=== PATIENT | female | born 1980 | race Caucasian/White ===

== ENCOUNTER 2023-09-29 17:05 | Emergency (ER) | payer MEDICARE, OTHER ==
[~2023-09-29] VITALS: Ht 167.6 cm; Wt 59.0 kg
[2023-09-29 17:12] VITALS: TEMP 99
[2023-09-29 22:11] VITALS: BP 101/62; O2SAT 98
== END 2023-09-29 22:12 ==
LOC: ER 17:09
DX: K59.00 Constipation, unspecified (principal); R22.2 Localized swelling, mass and lump, trunk
CPT/HCPCS: 72131-TC

== ENCOUNTER 2023-11-30 20:37 | Inpatient (IN) | payer MEDICARE, OTHER ==
[~2023-11-30] VITALS: Ht 167.6 cm; Wt 61.2 kg
[2023-11-30 21:29] LABS: BASOPHILS # (AUTO) 0.1 K/uL (0.0-0.2); BASOPHILS % (AUTO) 1.3 % (0.0-2.0); EOSINOPHILS # (AUTO) 0.1 K/uL (0.0-0.7); EOSINOPHILS % (AUTO) 1.4 % (0.0-6.0); HEMATOCRIT 38 % (33-45); HEMOGLOBIN 12.2 g/dL (11.5-14.8); LYMPHOCYTES % (AUTO) 44.2 % (20.0-44.0); MEAN CORPUSCULAR HEMOGLOBIN 24 PG (26.0-33.0); MEAN CORPUSCULAR HGB CONC 32 g/dl (31.0-36.0); MEAN CORPUSCULAR VOLUME 75 fL (82-100); MONOCYTES # (AUTO) 0.4 K/uL (0.1-1.30); MONOCYTES % (AUTO) 5.6 % (2.0-12.0); NEUTROPHILS # (AUTO) 3.2 K/uL (1.8-8.9); NEUTROPHILS % (AUTO) 47.5 % (43.0-81.0); PLATELET COUNT (AUTO) 235 K/uL (150-450); RED BLOOD CELL COUNT(AUTO) 5.07 MIL/uL (4.0-5.2); WHITE BLOOD COUNT (AUTO) 6.8 K/uL (4.3-11.0)
[2023-11-30] MEDS ORDERED: CEFEPIME 1 GM VIAL ONE (21:31)
[2023-11-30] MEDS ORDERED: VANCOMYCIN 1 GM /D5W 250 ML PB IV ONE (21:31)
[2023-11-30 21:41] LABS: CALCIUM, SERUM 8.6 mg/dL (8.5-10.1); CREATININE 0.4 mg/dL (0.6-1.3); POTASSIUM 3.5 mmol/L (3.5-5.1)
[2023-11-30 21:46] LABS: ALBUMIN 3.2 g/dL (3.4-5.0); BILIRUBIN,DIRECT 0.1 mg/dL (0.0-0.2); BILIRUBIN,TOTAL 0.4 mg/dL (0.2-1.0); TOTAL PROTEIN, SERUM 6.9 g/dL (6.4-8.2)
[2023-11-30 21:49] LABS: LACTIC ACID 0.9 mmol/L (0.4-2.0)
[2023-11-30] MEDS: CEFEPIME 1 GM in IV D5W 50 ML IV ONE (22:15)
[2023-11-30] MEDS ORDERED: MAGNESIUM HYDROXIDE 30 ML UDC PO PRN (22:30)
[2023-11-30] MEDS ORDERED: MAG HYDROX/AL HYDROX/SIMETH 30 ML UDC PO PRN (22:30)
[2023-11-30] MEDS ORDERED: ONDANSETRON HCL/PF 4 MG/2 ML VIAL IVP PRN (22:30)
[2023-11-30] MEDS ORDERED: ACETAMINOPHEN 325 MG TABLET PO PRN (22:30)
[2023-11-30 22:32] LABS: APPEARANCE,URINE CLEAR (CLEAR); BILIRUBIN,URINE NEGATIVE (NEGATIVE); BLOOD, URINE NEGATIVE Ery/uL (NEGATIVE); COLOR,URINE YELLOW (YELLOW); KETONES,URINE 3+ mg/dL (NEGATIVE); LEUKOCYTE ESTERASE ,URINE NEGATIVE (NEGATIVE); NITRITE, URINE NEGATIVE (NEGATIVE); PROTEIN,URINE NEGATIVE (NEGATIVE); UGLUCOSE 3+ mg/dL (NEGATIVE); UROBILINOGEN,URINE 0.2 EU/dL (0.2)
[2023-11-30 22:34] LABS: ADD URINE CULTURE NO; BACTERIA,URINE Rare /HPF (None Seen); SQUAMOUS EPITHELIAL CELL,UR Rare /HPF (None Seen); WBC,URINE 0-2 /HPF (0-3)
[2023-11-30 22:34] LABS: INR 0.97 (0.91-1.10); PARTIAL THROMBOPLASTIN TIME 29.2 SEC (24.3-34.3); PROTHROMBIN TIME 10.3 SECS (9.2-11.1)
[2023-11-30] MEDS: VANCOMYCIN 1 GM in IV D5W 250 ML IV ONE (23:00)
[2023-11-30] MEDS ORDERED: MIDO10TA PO (23:11)
[2023-11-30] MEDS ORDERED: GABA600T12 PO (23:11)
[2023-11-30] MEDS ORDERED: CYAN500T64 PO (23:11)
[2023-11-30] MEDS ORDERED: OXYB10TA30 PO (23:11)
[2023-11-30] MEDS ORDERED: ERGO500093 PO (23:11)
[2023-11-30] MEDS ORDERED: IBUP-76 PO (23:11)
[2023-11-30] MEDS ORDERED: HYDR-4182 TP (23:11)
[2023-11-30] MEDS ORDERED: MELA5TAB25 PO (23:11)
[2023-11-30] MEDS ORDERED: ESCI20TA PO (23:11)
[2023-11-30] MEDS ORDERED: LORA10CA PO (23:11)
[2023-11-30] MEDS ORDERED: BACL10TA PO (23:11)
[2023-11-30] MEDS ORDERED: ACET-907 PO (23:11)
[2023-11-30] MEDS ORDERED: POLY15DR31 EACHEYE (23:11)
[2023-11-30] MEDS ORDERED: FERR325T27 PO (23:11)
[2023-11-30 23:26] VITALS: BP 99/69; TEMP 97.7; O2SAT 99
[2023-12-01] MEDS ORDERED: Medication Not On Formulary EA (Melatonin 1 TAB) PO PRN
[2023-12-01] MEDS ORDERED: ACETAMINOPHEN W/ CODEINE#3 1 EA TABLET PO PRN
[2023-12-01] MEDS: IV NS 0.9% 1,000 ML IV SCH (00:18)
[2023-12-01] MEDS: BACLOFEN (10 MG) 10 MG TABLET PO SCH (00:29)
[2023-12-01] MEDS: MIDODRINE HCL (5MG) 5 MG TABLET PO SCH (01:30)
[2023-12-01] MEDS ORDERED: POLYVINYL ALCOHOL 15 ML BOTTLE EACHEYE PRN (01:30)
[2023-12-01 07:12] LABS: BASOPHILS # (AUTO) 0.1 K/uL (0.0-0.2); BASOPHILS % (AUTO) 0.7 % (0.0-2.0); EOSINOPHILS # (AUTO) 0.1 K/uL (0.0-0.7); EOSINOPHILS % (AUTO) 0.8 % (0.0-6.0); HEMATOCRIT 35 % (33-45); HEMOGLOBIN 11.3 g/dL (11.5-14.8); LYMPHOCYTES % (AUTO) 24.4 % (20.0-44.0); MEAN CORPUSCULAR HEMOGLOBIN 25 PG (26.0-33.0); MEAN CORPUSCULAR HGB CONC 32 g/dl (31.0-36.0); MEAN CORPUSCULAR VOLUME 76 fL (82-100); MONOCYTES # (AUTO) 0.6 K/uL (0.1-1.30); MONOCYTES % (AUTO) 6.9 % (2.0-12.0); NEUTROPHILS # (AUTO) 5.4 K/uL (1.8-8.9); NEUTROPHILS % (AUTO) 67.2 % (43.0-81.0); PLATELET COUNT (AUTO) 217 K/uL (150-450); RED BLOOD CELL COUNT(AUTO) 4.58 MIL/uL (4.0-5.2); WHITE BLOOD COUNT (AUTO) 8.1 K/uL (4.3-11.0)
[2023-12-01 07:30] VITALS: BP 129/80; TEMP 98.4; O2SAT 99
[2023-12-01 08:02] LABS: CALCIUM, SERUM 8.6 mg/dL (8.5-10.1); CREATININE 0.4 mg/dL (0.6-1.3); MAGNESIUM 2.2 mg/dL (1.8-2.4); PHOSPHORUS 3.5 mg/dL (2.5-4.9)
[2023-12-01] MEDS ORDERED: NA P133E RC (08:36)
[2023-12-01] MEDS ORDERED: [UNRECOGNIZED DRUG - OTHER] TP (08:36)
[2023-12-01] MEDS ORDERED: MENT1.1L PO (08:36)
[2023-12-01] MEDS ORDERED: POLY119P3 PO (08:36)
[2023-12-01] MEDS ORDERED: DOCU100T2 PO (08:36)
[2023-12-01] MEDS ORDERED: LOPE2CAP40 PO (08:36)
[2023-12-01] MEDS ORDERED: CHLO473M2 MM (08:36)
[2023-12-01] MEDS ORDERED: BISA10SU11 RC (08:36)
[2023-12-01] MEDS: CYANOCOBALAMIN 500 MCG TABLET PO SCH (09:00)
[2023-12-01] MEDS ORDERED: HYDROCORTISONE CR 30 GM TUBE RC SCH ×2 (09:00)
[2023-12-01] MEDS: FERROUS SULFATE (325 MG) 325 MG/TAB TABLET PO SCH (09:07)
[2023-12-01] MEDS: VANCOMYCIN 1 GM in IV D5W 250ml IV SCH (09:07)
[2023-12-01] MEDS: ESCITALOPRAM OXALATE (10 MG) 10 MG TABLET PO SCH (09:08)
[2023-12-01] MEDS: OXYBUTYNIN CHLORIDE 5 MG TABLET PO SCH (09:08)
[2023-12-01] MEDS: LORATADINE 10 MG TABLET PO SCH (09:08)
[2023-12-01] MEDS: GABAPENTIN 300 MG CAPSULE PO SCH (09:21)
[2023-12-01] MEDS: POTASSIUM CHLORIDE 20 MEQ TAB.PRT.SR PO SCH (10:30)
[2023-12-01] MEDS: Z GUARD REMEDY 4 OZ OINT TP SCH (11:31)
[2023-12-01] MEDS: CEFEPIME 2 GM in IV D5W 100 ML IV SCH (11:57)
[2023-12-01] MEDS: IV NS 0.9% 1,000 ML IV PRN (12:51)
[2023-12-01 16:23] VITALS: BP 98/66; TEMP 98.2; O2SAT 98
[2023-12-01 20:00] VITALS: BP 92/60; TEMP 99; O2SAT 96; O2SAT 98
[2023-12-01] MEDS ORDERED: CEFEPIME 1 GM in IV D5W 50 ML IV SCH (21:00)
[2023-12-02] MEDS: Z GUARD REMEDY 4 OZ OINT TP PRN (06:07)
[2023-12-02 06:32] LABS: BASOPHILS # (AUTO) 0.1 K/uL (0.0-0.2); EOSINOPHILS # (AUTO) 0.1 K/uL (0.0-0.7); EOSINOPHILS % (AUTO) 1.7 % (0.0-6.0); HEMATOCRIT 36 % (33-45); HEMOGLOBIN 11.7 g/dL (11.5-14.8); LYMPHOCYTES # (AUTO) 2.8 K/uL (0.8-4.8); LYMPHOCYTES % (AUTO) 39.9 % (20.0-44.0); MEAN CORPUSCULAR HEMOGLOBIN 25 PG (26.0-33.0); MEAN CORPUSCULAR HGB CONC 33 g/dl (31.0-36.0); MEAN CORPUSCULAR VOLUME 77 fL (82-100); MONOCYTES # (AUTO) 0.5 K/uL (0.1-1.30); MONOCYTES % (AUTO) 7.3 % (2.0-12.0); NEUTROPHILS # (AUTO) 3.5 K/uL (1.8-8.9); NEUTROPHILS % (AUTO) 50.1 % (43.0-81.0); PLATELET COUNT (AUTO) 238 K/uL (150-450); RED BLOOD CELL COUNT(AUTO) 4.62 MIL/uL (4.0-5.2); RED CELL DISTRIBUTION WIDTH 22.3 % (11.5-15.0); WHITE BLOOD COUNT (AUTO) 7.1 K/uL (4.3-11.0)
[2023-12-02 07:01] LABS: CALCIUM, SERUM 7.6 mg/dL (8.5-10.1); CREATININE 0.3 mg/dL (0.6-1.3); MAGNESIUM 2.2 mg/dL (1.8-2.4); PHOSPHORUS 3.2 mg/dL (2.5-4.9); POTASSIUM 3.9 mmol/L (3.5-5.1)
[2023-12-02 07:30] VITALS: BP 112/68; TEMP 97.6; O2SAT 98
[2023-12-02] MEDS: LIDOCAINE 5% (PATCH) 1 EA PATCH TP SCH (09:00)
[2023-12-02] MEDS: VANCOMYCIN 750 MG in IV D5W 250 ML IV SCH (14:24)
[2023-12-02 16:00] VITALS: BP 98/55; TEMP 98.4; O2SAT 100
[2023-12-02 20:00] VITALS: BP_SYST 96; BP_DIAS 55; BP_DIAS 65; TEMP 98.2; O2SAT 99
[2023-12-03 04:00] VITALS: BP 89/58; TEMP 98.2; O2SAT 98
[2023-12-03 08:00] VITALS: BP 89/56; TEMP 98.4; O2SAT 100
[2023-12-03] MEDS: ENSURE ENLIVE 237 ML LIQUID (VANILLA) PO SCH (09:00)
[2023-12-03 16:59] VITALS: BP 76/50; TEMP 99.1; O2SAT 100
[2023-12-03 20:00] VITALS: BP 92/55; TEMP 99.3; O2SAT 97
[2023-12-04 06:32] LABS: CALCIUM, SERUM 7.4 mg/dL (8.5-10.1); CREATININE 0.3 mg/dL (0.6-1.3); POTASSIUM 3.6 mmol/L (3.5-5.1)
[2023-12-04 07:00] VITALS: BP 115/68; TEMP 98.4; O2SAT 98
[2023-12-04] MEDS ORDERED: DOXY-226 PO (13:01)
[2023-12-04 16:00] VITALS: BP 97/62; TEMP 98.4; O2SAT 97
[2023-12-04 16:21] VITALS: BP 97/62
== END 2023-12-04 18:00 | DRG 539 ==
LOC: ER 20:43 → MED 23:02
PROVIDERS: ATTEND Nurse Practitioner Acute Care
DX: M46.28 Osteomyelitis of vertebra, sacral and sacrococcygeal region (principal); G82.50 Quadriplegia, unspecified; E44.1 Mild protein-calorie malnutrition; N31.9 Neuromuscular dysfunction of bladder, unspecified; V89.2XXS Person injured in unspecified motor-vehicle accident, traffic, sequela; E88.09 Other disorders of plasma-protein metabolism, not elsewhere classified; Z68.21 Body mass index [BMI] 21.0-21.9, adult; D50.9 Iron deficiency anemia, unspecified; E83.51 Hypocalcemia; E87.6 Hypokalemia; F32.A Depression, unspecified; Z79.899 Other long term (current) drug therapy
CPT/HCPCS: 36415; 71045-TC; 80048-TC; 80076-TC; 80202-TC; 81001; 83605-TC; 83735-TC; 84100-TC; 85025-TC; 85652-TC; 85730-TC; 86140-TC; 87040-TC; 87081-TC; 87086-TC; A4223; A9503; G0378; J0692; J3370; J3371; J7030; J7060